=== PATIENT | male | born 1980 | race Caucasian/White ===

== ENCOUNTER → 2016-11-17 | Outpatient (CLI) | payer BC ==
[~2016-11-17] MED LIST: ALLDSR/24 PO
== END | disposition home or self-care (01) ==
LOC: C.PATHSPEC 17:27
PROVIDERS: ATTEND Plastic Surgery
DX: R19.09 Other intra-abdominal and pelvic swelling, mass and lump (principal)

== ENCOUNTER → 2017-02-28 | Outpatient (CLI) | payer BC ==
[2017-02-28 12:39] LABS: BASO % 0.6 %; BASO ABS # 0.03 K/uL (0-0.2); COMPLETE YES; EOS % 1.9 %; HEMATOCRIT 41.6 % (42-52); LYMPH % 36.3 %; LYMPH ABS # 1.73 K/uL (1.2-3.4); MEAN CELL VOLUME 89.5 fL (80-100); MEAN CORPUSCULAR HEMOGLOBIN 30.8 pg (25-34); MEAN CORPUSCULAR HGB CONC 34.4 g/dl (32-36); MEAN PLATELET VOLUME 10.5 fL (7.4-10.4); MONO % 9.4 %; NEUT % 51.8 %; PLATELET COUNT 246 K/uL (130-400); RED BLOOD COUNT 4.65 M/uL (4.7-6.1); WHITE BLOOD COUNT 4.77 K/uL (4.8-10.8)
[2017-02-28 13:19] LABS: ALT/SGPT 27 U/L (12-78); AST/SGOT 23 U/L (15-37); BLOOD UREA NITROGEN 13 mg/dl (7-18); BUN/CREATININE RATIO 14.1 (10-20); CALCIUM 8.8 mg/dl (8.5-10.1); CARBON DIOXIDE 26 mmol/L (21-32); CHLORIDE 107 mmol/L (98-107); CREATININE 0.95 mg/dl (0.60-1.40); GLUCOSE 87 mg/dl (70-99); POTASSIUM 4.1 mmol/L (3.5-5.1); SODIUM 140 mmol/L (136-145)
[2017-02-28 13:21] LABS: ALKALINE PHOSPHATASE 54 U/L (45-117); CHOLESTEROL 185 mg/dl (0-200); CHOLESTEROL/HDL RATIO 3.9; HDL CHOLESTEROL 47 mg/dl; LDL CHOLESTEROL CALCULATED 124 mg/dl; TRIGLYCERIDES 69 mg/dl (0-150); VERY LOW DENSITY LIPOPROT CALC 14 mg/dl
== END | disposition home or self-care (01) ==
LOC: C.LABBFT 07:56
PROVIDERS: ATTEND Nurse Practitioner
DX: K51.90 Ulcerative colitis, unspecified, without complications (principal); Z13.220 Encounter for screening for lipoid disorders; E78.5 Hyperlipidemia, unspecified

== ENCOUNTER → 2017-08-22 | Outpatient (CLI) | payer BC | END | disposition home or self-care (01) | LOC: C.PATHSPEC 17:29 | PROVIDERS: ATTEND Plastic Surgery | DX: D17.9 Benign lipomatous neoplasm, unspecified (principal) ==